=== PATIENT | female | born 1970 | race Caucasian/White ===

== ENCOUNTER → 2020-12-02 11:50 | Outpatient (CLI) | payer OTHER, SELFPAY ==
--- NOTE | 2020-12-02 11:52 | DI.RAD.S_ITS ---
PROCEDURE: XR LUMBAR SPINE 2-3V INDICATIONS: chronic lbp x years, worsening, bilat SI joint TTP TECHNIQUE: 3 views of the lumbar spine were acquired. COMPARISON: None. FINDINGS: Bones: No fracture. Multilevel degenerative endplate sclerosis and spurring. Diffuse facet arthropathy. Diffuse mild narrowing of the lumbar disc spaces. Minimal levocurvature. Soft tissues: Overlying bowel gas pattern is normal. No suspicious soft tissue calcifications. Scattered vascular calcifications seen in the aorta. IMPRESSION: Minimal levocurvature . Mild diffuse lumbar spondylosis and facet disease. Dictated by: Prakash Gomez M.D. on 12/02/2020 at 13:58 Approved by: Prakash Gomez M.D. on 12/02/2020 at 13:59
--- NOTE | 2020-12-02 11:52 | DI.RAD.S_ITS ---
PROCEDURE: XR SACROILIAC JOINT MIN 3V INDICATIONS: chronic lbp x years, worsening, bilat SI joint TTP TECHNIQUE: 3 views of the sacroiliac joints were acquired. COMPARISON: None. FINDINGS: Bones: No bony erosions or ankylosis. However, mild cortical irregularity at the inferior right SI joint. No suspicious bony lesions. No fractures. There is mild bilateral sacroiliac sclerosis and spurring. Soft tissues: Overlying bowel gas pattern is normal. No suspicious soft tissue densities. IMPRESSION: Bilateral mild sacroiliac sclerosis and spurring. No definite erosions, ankylosis, although mild cortical irregularity at the inferior right SI joint. If the patient's pain or other symptoms persist, consider further evaluation with MRI Dictated by: Prakash Gomez M.D. on 12/02/2020 at 14:00 Approved by: Prakash Gomez M.D. on 12/02/2020 at 14:01
[2020-12-02 12:16] LABS: Hemoglobin 14.4 g/dL (12.0-16.0); Mean Corpuscular HGB Conc 34.4 % (30-36); Mean Corpuscular Hemoglobin 31.4 PG (26-34); Mean Corpuscular Volume 91.3 fL (80-100); Platelet Count 178 X10^3/uL (150-400); Red Cell Distribution Width 12.9 % (11.6-14.8); White Blood Cell Count 6.1 X10^3/uL (4.5-11.0)
[2020-12-02 12:41] LABS: Alanine Aminotransferase 36 IU/L (<35); Albumin Globulin Ratio 1.6 (1.0-2.8); Alkaline Phosphatase 84 U/L (38-126); Aspartate Aminotransferase 40 IU/L (14-36); BUN Creatinine Ratio 21.5 (6-22); Bilirubin Total 0.7 mg/dL (0.2-1.3); Blood Urea Nitrogen 17 mg/dL (7-17); Calcium 10.1 mg/dL (8.4-10.2); Carbon Dioxide 25 mmol/L (22-32); Chloride 104 mmol/L (98-107); Cholesterol 294 mg/dL (140-199); Estimated Glomerular Filt Rate > 60.0 mL/min (>60); Globulin 3.1 g/dL (1.7-4.1); Glucose 109 mg/dL (70-100); HDL Cholesterol 53 mg/dL (40-60); HEMOLYSIS < 15 (0-50); Potassium 4.6 mmol/L (3.4-5.1); Sodium 138 mmol/L (137-145); Total Protein 8.1 g/dL (6.3-8.2); Triglycerides 427 mg/dL (35-150)
[2020-12-02 13:11] LABS: TSH w/ Reflex to FT4 1.36 uIU/mL (0.47-4.68)
[2020-12-02 13:20] LABS: Hemoglobin A1C% w Est Avg Glu 5.3 % (4.0-6.0)
[2020-12-02 13:56] LABS: Ferritin 206 ng/mL (11-264)
== END ==
PROVIDERS: PCP Registered Nurse Diabetes Educator; Referring Provider Registered Nurse Diabetes Educator; Visit Provider Registered Nurse Diabetes Educator
DX: G89.29 Other chronic pain (principal); M53.3 Sacrococcygeal disorders, not elsewhere classified; M54.5 Low back pain; E78.5 Hyperlipidemia, unspecified; R73.01 Impaired fasting glucose; R74.8 Abnormal levels of other serum enzymes
CPT/HCPCS: 36415; 72100; 72202; 80053; 80061; 82728; 83036; 84443; 85027

== ENCOUNTER → 2020-12-17 11:21 | Outpatient (CLI) | payer OTHER, SELFPAY ==
--- NOTE | 2020-12-17 11:23 | DI.MRI.S_ITS ---
PROCEDURE: MR PELVIS WO CON INDICATIONS: further eval bilateral SI joint findings, r/o sacroiliitis TECHNIQUE: Noncontrast axial and oblique coronal T1 spin echo and STIR through the sacroiliac joints. COMPARISON: [facility], CR, XR SACROILIAC JOINT MIN 3V, 12/02/2020, 12:15. FINDINGS: Image quality: Excellent. Bones: The sacroiliac joints appear preserved. No adjacent bone marrow edema to suggest active sacroiliitis. No bony erosions. No ankylosis. No suspicious marrow space occupying lesions. Soft tissues: No presacral masses. Visualized bowel loops appear normal in caliber and wall thickness. No pathologic free pelvic fluid. IMPRESSION: 1. No evidence of sacroiliitis. No bony ankylosis. Dictated by: Jose Ramon Burden M.D. on 12/17/2020 at 15:33 Approved by: Jose Ramon Burden M.D. on 12/17/2020 at 15:46
== END ==
PROVIDERS: PCP Registered Nurse Diabetes Educator; Referring Provider Registered Nurse Diabetes Educator; Visit Provider Registered Nurse Diabetes Educator
DX: R93.89 Abnormal findings on diagnostic imaging of other specified body structures (principal)
CPT/HCPCS: 72195

== ENCOUNTER → 2021-01-07 10:41 | Outpatient (CLI) | payer OTHER, SELFPAY ==
[2021-01-07] MEDS: COVID-19 VACC #1, MRNA(MOD) 100 MCG/0.5 ML VIAL IM (11:01)
== END ==
PROVIDERS: PCP Registered Nurse Diabetes Educator; Visit Provider Internal Medicine
DX: Z23 Encounter for immunization (principal)
CPT/HCPCS: 0011A; 91301

== ENCOUNTER → 2021-02-10 10:50 | Outpatient (CLI) | payer OTHER, SELFPAY ==
[2021-02-10] MEDS: COVID-19 VACC #2, MRNA(MOD) 100 MCG/0.5 ML VIAL IM (10:55)
== END ==
PROVIDERS: PCP Registered Nurse Diabetes Educator; Visit Provider Internal Medicine
DX: Z23 Encounter for immunization (principal)
CPT/HCPCS: 0012A; 91301

== ENCOUNTER → 2021-10-28 08:34 | Outpatient (CLI) | payer OTHER, SELFPAY ==
[2021-10-28 10:50] LABS: Alanine Aminotransferase 69 IU/L (<35); Albumin 5.1 g/dL (3.5-5.0); Albumin Globulin Ratio 1.6 (1.0-2.8); Alkaline Phosphatase 74 U/L (38-126); Aspartate Aminotransferase 54 IU/L (14-36); Bilirubin Total 0.7 mg/dL (0.2-1.3); Bilirubin Unconjugated 0.7 mg/dL (0.0-1.1); Globulin 3.2 g/dL (1.7-4.1); HEMOLYSIS < 15 (0-50); Total Protein 8.3 g/dL (6.3-8.2)
[2021-10-28 10:53] LABS: HEMOLYSIS < 15 (0-50); Iron 91 ug/dL (37-170)
[2021-10-28 11:06] LABS: Percent Iron Saturation 31 % (15-50); Total Iron Binding Capacity 291 ug/dL (265-497); Transferrin 255 mg/dL (206-381)
[2021-10-28 17:30] LABS: Hepatitis B Surface Antigen NEGATIVE s/c (NEGATIVE)
[2021-10-28 17:40] LABS: Hep C Virus Ab w/Reflex Quant NEGATIVE s/c (NEGATIVE)
[2021-10-28 19:41] LABS: Ferritin 289 ng/mL (11-264)
[2021-10-29 03:45] LABS: Hepatitis B Core AB w/Reflex Negative (Negative)
== END ==
PROVIDERS: PCP Registered Nurse Diabetes Educator; Referring Provider Registered Nurse Diabetes Educator; Visit Provider Registered Nurse Diabetes Educator
DX: R74.8 Abnormal levels of other serum enzymes (principal)
CPT/HCPCS: 36415; 80076; 82728; 83540; 83550; 86704; 86803; 87340

== ENCOUNTER → 2021-11-22 10:02 | Outpatient (CLI) | payer OTHER, SELFPAY ==
--- NOTE | 2021-11-22 | DI.MG.S_ITS ---
BILATERAL DIGITAL SCREENING MAMMOGRAM 3D/2D WITH CAD WITH AUGMENTATION: 11/22/2021 CLINICAL: Routine screening. Comparison is made to exams dated: 12/21/2018 mammogram, 01/03/2017 mammogram, and 08/19/2013 mammogram - outside location. There are scattered fibroglandular elements in both breasts. Current study was also evaluated with a Computer Aided Detection (CAD) system. Bilateral breast implants are stable. No significant masses, calcifications, or other findings are seen in either breast. There has been no significant interval change. IMPRESSION: NEGATIVE There is no mammographic evidence of malignancy. A 1 year screening mammogram is recommended. This exam was interpreted at Station ID: [id number]. NOTE: For mammograms, a report in lay terms will be sent to the patient. Approximately 15% of breast malignancies will not be visualized mammographically. In the management of a palpable breast mass, a negative mammogram must not discourage biopsy of a clinically suspicious lesion. Electronically Signed By: Shivma yanez/hemalatha:11/22/2021 11:34:20 letter sent: Normal Exam ACR BI-RADS Category 1: Negative 3341F
== END ==
PROVIDERS: PCP Registered Nurse Diabetes Educator; Referring Provider Registered Nurse Diabetes Educator; Visit Provider Registered Nurse Diabetes Educator
DX: Z12.31 Encounter for screening mammogram for malignant neoplasm of breast (principal)
CPT/HCPCS: 77063; 77067

== ENCOUNTER → 2021-12-01 12:17 | Outpatient (CLI) | payer OTHER, SELFPAY ==
--- NOTE | 2021-12-01 12:19 | DI.US.S_ITS ---
PROCEDURE: US ABDOMEN LIMITED INDICATIONS: ELEVATED LIVER ENZYMES TECHNIQUE: Real-time scanning was performed of the abdominal and retroperitoneal organs, with image documentation. COMPARISON: None. FINDINGS: Liver: The liver demonstrates diffusely increased echotexture without focal abnormalities consistent with chronic hepatocellular disease/hepatic steatosis. Within the medial aspect of the left hepatic lobe there is a 2.6 x 1.2 x 1.7 cm heterogeneously hypoechoic focus with minimal internal vascularity. Gallbladder: Gallbladder is normal in sonographic appearance without gallstones, gallbladder wall thickening, pericholecystic fluid, or abnormal sonographic Escobar's. Biliary ducts: Intrahepatic bile ducts are non-dilated. Extrahepatic bile duct caliber measures 5 mm. Normal is 6-7 mm or less in diameter, or 10 mm or less post-cholecystectomy. Pancreas: Visualized portions of the pancreas are sonographically normal. Miscellaneous: No free abdominal fluid. IMPRESSION: 1. The liver demonstrates diffusely increased echotexture without focal abnormalities consistent with chronic hepatocellular disease/hepatic steatosis. Consider correlation with LFTs. 2. There is a 2.6 cm x 1.2 cm x 1.7 cm heterogeneously hypoechoic focus with minimal internal vascularity identified in the medial aspect of the left hepatic lobe in close proximity to the gallbladder. This may represent a focus of fatty sparing versus a solid hepatic mass. Recommend further characterization with dedicated without/with contrast CT or MRI of the abdomen using hepatic mass protocol. 3. Normal sonographic evaluation of the gallbladder. Dictated by: Shivam Jones M.D. on 12/01/2021 at 15:22 Approved by: Shivam Jones M.D. on 12/01/2021 at 15:25
== END ==
PROVIDERS: PCP Registered Nurse Diabetes Educator; Referring Provider Registered Nurse Diabetes Educator; Visit Provider Registered Nurse Diabetes Educator
DX: R74.8 Abnormal levels of other serum enzymes (principal)
CPT/HCPCS: 76705

== ENCOUNTER → 2021-12-11 08:39 | Outpatient (CLI) | payer OTHER, SELFPAY ==
--- NOTE | 2021-12-11 08:41 | DI.MRI.S_ITS ---
PROCEDURE: MR ABDOMEN WO/W CON INDICATIONS: liver mass TECHNIQUE: Coronal HASTE, axial 2D FLASH in- and [id number]; axial breath-hold T2 FSE. Dynamic axial VIBE during the administration of contrast; post-contrast coronal VIBE or 2D FLASH with fat saturation from the hepatic dome to the iliac crests. Restricted diffusion weighted imaging and ADC. 20 cc ProHance IV contrast. COMPARISON: [facility], US, US ABDOMEN LIMITED, 12/01/2021, 12:42. FINDINGS: Image quality: Excellent. Lung bases: No basal pleural effusions. Heart size is normal. Breast implants. Solid organs: Liver is normal in size. Hepatic steatosis. Focal fatty sparing near the hilum and gallbladder. This is similar in size compared to the ultrasound finding. No mass or suspicious enhancement. Gallbladder is not distended. No gallstones identified. Biliary system is non dilated. Pancreas is normal in morphology. Spleen is normal in size and enhancement. No adrenal nodules. Both kidneys demonstrate normal size and enhancement, without hydronephrosis. Nodes and vessels: No retroperitoneal or mesenteric adenopathy by size criteria. Aorta and inferior vena cava are normal in size. Bowel and peritoneum: Unenhanced bowel loops are normal in caliber. A few colonic diverticuli. No free fluid. Bones and soft tissues: No ventral hernias. Bone marrow is normal in overall signal. IMPRESSION: 1. Hepatic steatosis. Focal fatty sparing near the gallbladder and hilum which corresponds to the ultrasound finding. 2. No mass or suspicious enhancement. Dictated by: Antwon Ramos M.D. on 12/13/2021 at 8:54 Approved by: Antwon Ramos M.D. on 12/13/2021 at 9:04
== END ==
PROVIDERS: PCP Registered Nurse Diabetes Educator; Referring Provider Registered Nurse Diabetes Educator; Visit Provider Registered Nurse Diabetes Educator
DX: R93.2 Abnormal findings on diagnostic imaging of liver and biliary tract (principal); K76.0 Fatty (change of) liver, not elsewhere classified
CPT/HCPCS: 74183; A9579

== ENCOUNTER → 2022-09-28 14:50 | Outpatient (CLI) | payer OTHER, SELFPAY ==
[2022-09-28 17:31] LABS: Add Manual Diff / Slide Review NO; Basophils Absolute Auto 0 /uL (0-100); Basophils Percent Auto 0.5 % (0-2); Eosinophils Absolute Auto 100 /uL (0-450); Eosinophils Percent Auto 1.2 % (2-4); Hematocrit 40.6 % (36-46); Lymphocytes Absolute Auto 2700 /uL (1100-4500); Mean Corpuscular HGB Conc 34.6 % (30-36); Mean Corpuscular Hemoglobin 31.5 PG (26-34); Mean Corpuscular Volume 91.3 fL (80-100); Monocytes Absolute Auto 500 /uL (0-900); Monocytes Percent Auto 6.9 % (3-14); Neutrophils Absolute Auto 4100 /uL (1500-7000); Neutrophils Percent Auto 55.4 % (50-75); Platelet Count 168 X10^3/uL (150-400); Red Blood Cell Count 4.44 X10^6/uL (4.0-5.2); Red Cell Distribution Width 12.6 % (11.6-14.8); White Blood Cell Count 7.4 X10^3/uL (4.5-11.0)
[2022-09-28 17:36] LABS: Hemoglobin A1C% w Est Avg Glu 5.4 % (4.0-6.0)
[2022-09-28 18:07] LABS: Alanine Aminotransferase 71 IU/L (<35); Albumin 4.7 g/dL (3.5-5.0); Albumin Globulin Ratio 1.3 (1.0-2.8); Alkaline Phosphatase 79 U/L (38-126); Aspartate Aminotransferase 52 IU/L (14-36); BUN Creatinine Ratio 22.1 (6-22); Bilirubin Total 0.5 mg/dL (0.2-1.3); Blood Urea Nitrogen 21 mg/dL (7-17); Calcium 9.4 mg/dL (8.4-10.2); Carbon Dioxide 26 mmol/L (22-32); Chloride 103 mmol/L (98-107); Estimated Glomerular Filt Rate > 60 mL/min (>60); Globulin 3.6 g/dL (1.7-4.1); Glucose 102 mg/dL (70-100); HEMOLYSIS < 15 (0-50); Magnesium 2.1 mg/dL (1.6-2.3); Potassium 4.1 mmol/L (3.4-5.1); Sodium 141 mmol/L (137-145); Total Protein 8.3 g/dL (6.3-8.2)
[2022-09-28 18:40] LABS: Ferritin 277 ng/mL (11-264)
[2022-09-30 14:27] LABS: Appearance Urine UA CLEAR; Bilirubin Urine UA NEGATIVE (NEGATIVE); Color Urine UA YELLOW; Glucose Urine UA NEGATIVE (Negative); Ketones Urine UA NEGATIVE (NEGATIVE); Leukocyte Esterase Urine UA NEGATIVE (NEGATIVE); Nitrite Urine UA NEGATIVE (Negative); Occult Blood Urine UA NEGATIVE (Negative); Protein Urine UA NEGATIVE (Negative); Specific Gravity Urine UA 1.015 (1.000-1.035); Urobilinogen Urine UA 0.2 E.U./dL (0.2)
[2022-09-30 14:46] LABS: Bacteria Urine Occasional (0-1); Culture Indicated Urine Cult Not Indicated; RBC Urine None Seen (0-5/HPF); WBC Urine None Seen (0-5/HPF)
== END ==
PROVIDERS: PCP Registered Nurse Diabetes Educator; Referring Provider Registered Nurse Diabetes Educator; Visit Provider Registered Nurse Diabetes Educator
DX: E78.5 Hyperlipidemia, unspecified (principal); I10 Essential (primary) hypertension; R73.01 Impaired fasting glucose; R74.8 Abnormal levels of other serum enzymes
CPT/HCPCS: 36415; 80053; 81001; 82728; 83036; 83735; 84443; 85025

== ENCOUNTER → 2022-10-10 13:48 | Outpatient (CLI) | payer OTHER, SELFPAY ==
--- NOTE | 2022-10-18 07:38 | P.HOLT.S_ITS ---
[facility] Department Report Referral & Results Date Patient Seen: 10/10/22 Requesting provider: Aakash Castillo Indication: Palpitations Duration of monitoring (days): 3 Diary information: There were 3 patient triggered events and 2 patient diary entries. All of these patient events were associated with sinus rhythm only Data: Minimum heart rate identified was 57 beats per minute at 06:17 on 10/13/2022 Maximum heart rate was sinus rhythm at a rate of 133 beats per minute at 10:04 on 10/12/2022 Less than 1% of identified beats were ventricular or supraventricular ectopic in origin, which would classify them as rare. No pauses of 3 seconds or longer or episodes of atrial fibrillation or SVT identified on this study Impression: 3 day telemetry monitor that does not demonstrate any etiology for patient reported sense of palpitations.
== END ==
PROVIDERS: PCP Registered Nurse Diabetes Educator; Referring Provider Registered Nurse Diabetes Educator; Visit Provider Registered Nurse Diabetes Educator
DX: R00.2 Palpitations (principal)
CPT/HCPCS: 93242; 93244

== ENCOUNTER → 2022-10-17 14:58 | Outpatient (CLI) | payer OTHER, SELFPAY ==
[2022-10-17 16:19] LABS: Free T3, Triiodothyronine Free 4.02 pg/mL (2.77-5.27); Free T4, Direct Thyroxine 0.82 ng/dL (0.78-2.19)
== END ==
PROVIDERS: PCP Registered Nurse Diabetes Educator; Referring Provider Registered Nurse Diabetes Educator; Visit Provider Registered Nurse Diabetes Educator
DX: I10 Essential (primary) hypertension (principal); R00.2 Palpitations
CPT/HCPCS: 36415; 84439; 84481

== ENCOUNTER → 2022-10-26 09:08 | Outpatient (CLI) | payer OTHER, SELFPAY ==
--- NOTE | 2022-10-26 09:09 | DI.ECHO.S_ITS ---
[place] [facility] +---------+ : : [address] [place] : : : : [id number] : : : : Phone: [phone]+ Echocardiogram Report + + :Name: KAIDEN FISHMAN Study Date: 10/26/2022 Height: 62.5 in: :[facility] ReadingLocation: Weight: 148 lb : : Gender: Female BSA: 1.7 m2 : :: 1970 Age: 52 yrs BP: 140/82 mmHg: :Reason For Study: LVH ON EKG : :Ordering Physician: GRABIEL, : :PHAM Performed By: Jacklyn Ga : :Referring: PHAM SPAIN : + + Interpretation Summary The left ventricle is normal in size. There is borderline proximal septal thickening noted. Left ventricular systolic function is normal. The ejection fraction is estimated to be 60-65%. The right ventricle is normal in size and function. No significant valvular pathology seen. The IVC is of normal diameter and collapses greater than 50% with a sniff. This suggests a low right atrial pressure of 3 mm Hg. Procedure: A two-dimensional transthoracic echocardiogram with color flow and Doppler was performed. The study quality was technically adequate. There is no prior echocardiogram noted for this patient. The patient was in sinus rhythm with heart rates between 71-79 bpm during the exam. Left Ventricle: There is borderline proximal septal thickening noted. There is no echo evidence for significant left ventricular outflow tract obstruction. The left ventricle is normal in size. There is no thrombus. The ejection fraction is estimated to be 60-65%. Left ventricular systolic function is normal. There are no focal wall motion abnormalities. MV E/A: 1.1 Med Peak E' Jeramie: 6.9 cm/sec E/E' med: 12.3. Right Ventricle: The right ventricle is normal in size and function. Atria: The left atrial size is normal. Right atrial size is normal. There is no Doppler evidence for an interatrial shunt. Mitral Valve: The mitral valve is normal in structure and function. There is trace mitral regurgitation. Aortic Valve: The aortic valve is trileaflet. The aortic valve opens well. There is no aortic valve stenosis. No aortic regurgitation is present. Tricuspid Valve: The tricuspid valve is normal in structure and function. There is trace tricuspid regurgitation. Pulmonary artery pressures cannot be estimated because of the lack of a measurable TR jet velocity. Pulmonic Valve: The pulmonic valve is not well visualized. There is no pulmonic valvular regurgitation. Great Vessels: The aortic root is normal size. The dimensions of the ascending aorta are normal. The IVC is of normal diameter and collapses greater than 50% with a sniff. This suggests a low right atrial pressure of 3 mm Hg. Pericardium/ Pleura There is no pericardial effusion. There is no pleural effusion. MMode/2D Measurements & Calculations LVIDd: 4.6 cm LVOT diam: 2.0 cm LVIDs: 3.1 cm Ao root diam: 3.1 cm FS: 32.1 % asc Aorta Diam: 3.5 cm IVSd: 0.85 cm Ao Arch Diam (Prox Trans): 3.2 cm LVPWd: 0.92 cm LV mason. diameter/BSA (cm/m^2): 2.7 LV sys. diameter/BSA (cm/m^2): 1.8 LA A2 area: 17.0 cm2 RA long axis: 4.6 cm LA A4 area: 13.9 cm2 RA area: 12.4 cm2 LA length (vol): 4.5 cm RA vol: 28.3 ml LA vol: 45.0 ml RA : 16.7 ml/m2 LA vol index: 26.6 ml/m2 IVC diam: 1.6 cm RVD1 (basal): 3.2 cm RVD2 (mid): 2.4 cm TAPSE: 1.8 cm Doppler Measurements & Calculations Ao V2 max: 133.7 cm/sec LVOT Max Jeramie: 103.7 cm/sec Ao V2 mean: 95.9 cm/sec LV V1 max P.3 mmHg Ao max P.2 mmHg LV V1 VTI: 19.4 cm Ao mean P.1 mmHg TEMITOPE(I,D): 2.2 cm2 Ao V2 VTI: 28.8 cm TEMITOPE(V,D): 2.5 cm2 sev ratio: 0.67 TEMITOPE indexed to BSA (cm^2/m^2): 1.3 MV E max jeramie: 85.3 cm/sec PA V2 max: 70.8 cm/sec MV A max jeramie: 78.5 cm/sec PA V2 mean: 51.4 cm/sec MV E/A: 1.1 PA mean P.2 mmHg Med Peak E' Jeramie: 6.9 cm/sec PA pr(Accel): 27.6 mmHg E/E' med: 12.3 Lat Peak E' Jeramie: 8.5 cm/sec E/E' lat: 10.1 E/e' average: 11.2 MV dec time: 0.19 sec SV(LVOT): 62.3 ml Reading Physician:02:12 PM
== END ==
PROVIDERS: PCP Registered Nurse Diabetes Educator; Referring Provider Registered Nurse Diabetes Educator; Visit Provider Registered Nurse Diabetes Educator
DX: R94.31 Abnormal electrocardiogram [ECG] [EKG] (principal); I10 Essential (primary) hypertension
CPT/HCPCS: 93306

== ENCOUNTER → 2023-01-30 12:38 | Outpatient (CLI) | payer OTHER, SELFPAY ==
--- NOTE | 2023-01-30 12:39 | DI.MG.S_ITS ---
BILATERAL DIGITAL SCREENING MAMMOGRAM 3D/2D WITH CAD WITH AUGMENTATION: 01/30/2023 CLINICAL: Routine screening. Comparison is made to exams dated: 11/22/2021 mammogram - [facility], 12/21/2018 mammogram, and 01/03/2017 mammogram - outside location. Both breasts are heterogeneously dense, which may obscure small masses (category c / 51-75% glandular tissue). Current study was also evaluated with a Computer Aided Detection (CAD) system. Bilateral breast implants are stable. No significant masses, calcifications, or other findings are seen in either breast. There has been no significant interval change. IMPRESSION: NEGATIVE There is no mammographic evidence of malignancy. A 1 year screening mammogram is recommended. Based on the Tyrer Cuzick model (a risk assessment model) the patient's lifetime risk is 10.4% and her 10 year risk is 3.0%. According to the ACR, ACS, and NCCN guidelines, an annual breast MRI exam along with mammogram is recommended if the patient's lifetime risk is 20% or greater. This exam was interpreted at Station ID: [id number]. NOTE: For mammograms, a report in lay terms will be sent to the patient. Approximately 15% of breast malignancies will not be visualized mammographically. In the management of a palpable breast mass, a negative mammogram must not discourage biopsy of a clinically suspicious lesion. Electronically Signed By: David balbuena/hemalatha:01/30/2023 13:50:58 letter sent: Normal Exam ACR BI-RADS Category 1: Negative 3341F
== END ==
PROVIDERS: PCP Registered Nurse Diabetes Educator; Referring Provider Registered Nurse Diabetes Educator; Visit Provider Registered Nurse Diabetes Educator
DX: Z12.31 Encounter for screening mammogram for malignant neoplasm of breast (principal)
CPT/HCPCS: 77063; 77067

== ENCOUNTER → 2023-03-27 10:00 | Outpatient (CLI) | payer OTHER, SELFPAY ==
[2023-03-27 11:37] LABS: Alanine Aminotransferase 39 IU/L (<35); Albumin 4.4 g/dL (3.5-5.0); Albumin Globulin Ratio 1.6 (1.0-2.8); Alkaline Phosphatase 64 U/L (38-126); Aspartate Aminotransferase 31 IU/L (14-36); BUN Creatinine Ratio 16.1 (6-22); Bilirubin Total 0.8 mg/dL (0.2-1.3); Blood Urea Nitrogen 15 mg/dL (7-17); Calcium 9.3 mg/dL (8.4-10.2); Carbon Dioxide 26 mmol/L (22-32); Chloride 104 mmol/L (98-107); Cholesterol 258 mg/dL (140-199); Estimated Glomerular Filt Rate > 60 mL/min (>60); Globulin 2.7 g/dL (1.7-4.1); Glucose 104 mg/dL (70-100); HDL Cholesterol 42 mg/dL (40-60); HEMOLYSIS < 15 (0-50); LDL Cholesterol Calculated 151 mg/dL (<100); Potassium 4.6 mmol/L (3.4-5.1); Sodium 139 mmol/L (137-145); Total Protein 7.1 g/dL (6.3-8.2); Triglycerides 326 mg/dL (35-150)
[2023-03-28 07:09] LABS: Labcorp Hemoglobin (Hb) A1c 5.3 % (4.8-5.6)
== END ==
PROVIDERS: PCP Registered Nurse Diabetes Educator; Referring Provider Registered Nurse Diabetes Educator; Visit Provider Registered Nurse Diabetes Educator
DX: R74.8 Abnormal levels of other serum enzymes (principal); R73.01 Impaired fasting glucose; E78.5 Hyperlipidemia, unspecified
CPT/HCPCS: 36415; 80053; 80061; 83036

== ENCOUNTER → 2023-08-24 11:55 | Outpatient (CLI) | payer OTHER, SELFPAY ==
[2023-08-24 14:13] LABS: Alanine Aminotransferase 52 IU/L (<35); Albumin 4.6 g/dL (3.5-5.0); Albumin Globulin Ratio 1.5 (1.0-2.8); Alkaline Phosphatase 66 U/L (38-126); Aspartate Aminotransferase 42 IU/L (14-36); Bilirubin Total 0.8 mg/dL (0.2-1.3); Bilirubin Unconjugated 0.5 mg/dL (0.0-1.1); Cholesterol 263 mg/dL (140-199); Globulin 3.1 g/dL (1.7-4.1); Glucose 97 mg/dL (70-100); HDL Cholesterol 39 mg/dL (40-60); HEMOLYSIS < 15 (0-50); Total Protein 7.7 g/dL (6.3-8.2); Triglycerides 453 mg/dL (35-150)
[2023-08-24 14:40] LABS: Ferritin 318 ng/mL (11-264)
== END ==
PROVIDERS: PCP Registered Nurse Diabetes Educator; Referring Provider Registered Nurse Diabetes Educator; Visit Provider Registered Nurse Diabetes Educator
DX: R74.8 Abnormal levels of other serum enzymes (principal); R73.01 Impaired fasting glucose; E78.5 Hyperlipidemia, unspecified; K76.0 Fatty (change of) liver, not elsewhere classified
CPT/HCPCS: 36415; 80061; 80076; 82728; 82947

== ENCOUNTER → 2024-04-08 10:48 | Outpatient (CLI) | payer OTHER, SELFPAY ==
--- NOTE | 2024-04-08 10:49 | DI.MG.S_ITS ---
BILATERAL DIGITAL SCREENING MAMMOGRAM 3D/2D WITH CAD WITH AUGMENTATION: 04/08/2024 CLINICAL: Routine screening. Comparison is made to exams dated: 01/30/2023 mammogram, 11/22/2021 mammogram - [facility], and 12/21/2018 mammogram - outside location. Both breasts are heterogeneously dense, which may obscure small masses (category c / 51-75% glandular tissue). Current study was also evaluated with a Computer Aided Detection (CAD) system. Bilateral breast implants are stable. No significant masses, calcifications, or other findings are seen in either breast. There has been no significant interval change. IMPRESSION: BENIGN There is no mammographic evidence of malignancy. A 1 year screening mammogram is recommended. Based on the Tyrer Cuzick model (a risk assessment model) the patient's lifetime risk is 10.2% and her 10 year risk is 3.3%. According to the ACR, ACS, and NCCN guidelines, an annual breast MRI exam along with mammogram is recommended if the patient's lifetime risk is 20% or greater. This exam was interpreted at Station ID: [id number]. NOTE: For mammograms, a report in lay terms will be sent to the patient. Approximately 15% of breast malignancies will not be visualized mammographically. In the management of a palpable breast mass, a negative mammogram must not discourage biopsy of a clinically suspicious lesion. Electronically Signed By: Ivette Charles M.D., Ph.D. darlene/hemalatha:04/08/2024 16:28:51 letter sent: Normal Exam ACR BI-RADS Category 2: Benign Finding(s) 3342F
== END ==
PROVIDERS: PCP Registered Nurse Diabetes Educator; Referring Provider Registered Nurse Diabetes Educator; Visit Provider Registered Nurse Diabetes Educator
DX: Z12.31 Encounter for screening mammogram for malignant neoplasm of breast (principal); R92.333 Mammographic heterogeneous density, bilateral breasts
CPT/HCPCS: 77063; 77067

== ENCOUNTER → 2024-07-10 10:21 | Outpatient (CLI) | payer OTHER, SELFPAY ==
[2024-07-10 10:59] LABS: Hematocrit 39.8 % (36-46); Hemoglobin 13.6 g/dL (12.0-16.0); Mean Corpuscular HGB Conc 34.1 % (30-36); Mean Corpuscular Volume 87.7 fL (80-100); Platelet Count 210 X10^3/uL (150-400); Red Blood Cell Count 4.54 X10^6/uL (4.0-5.2); Red Cell Distribution Width 12.7 % (11.6-14.8)
[2024-07-10 11:07] LABS: Hemoglobin A1C% w Est Avg Glu 5.5 % (4.0-6.0)
[2024-07-10 11:43] LABS: Alanine Aminotransferase 30 IU/L (<35); Albumin 4.2 g/dL (3.5-5.0); Albumin Globulin Ratio 1.5 (1.0-2.8); Alkaline Phosphatase 60 U/L (38-126); Aspartate Aminotransferase 30 IU/L (14-36); BUN Creatinine Ratio 19.4 (6-22); Bilirubin Total 0.5 mg/dL (0.2-1.3); Blood Urea Nitrogen 14 mg/dL (7-17); Calcium 9.6 mg/dL (8.4-10.2); Carbon Dioxide 24 mmol/L (22-32); Chloride 106 mmol/L (98-107); Cholesterol 299 mg/dL (140-199); Estimated Glomerular Filt Rate > 60 mL/min (>60); Globulin 2.8 g/dL (1.7-4.1); Glucose 104 mg/dL (70-100); HDL Cholesterol 41 mg/dL (40-60); HEMOLYSIS < 15 (0-50); LDL Cholesterol Calculated 208 mg/dL (<100); Potassium 4.5 mmol/L (3.4-5.1); Sodium 135 mmol/L (137-145); Triglycerides 250 mg/dL (35-150)
[2024-07-10 12:10] LABS: TSH w/ Reflex to FT4 0.77 uIU/mL (0.47-4.68)
== END ==
PROVIDERS: PCP Registered Nurse Diabetes Educator; Referring Provider Registered Nurse Diabetes Educator; Visit Provider Registered Nurse Diabetes Educator
DX: Z00.00 Encounter for general adult medical examination without abnormal findings (principal); R73.01 Impaired fasting glucose; R74.8 Abnormal levels of other serum enzymes; E78.5 Hyperlipidemia, unspecified; Z51.81 Encounter for therapeutic drug level monitoring; K76.0 Fatty (change of) liver, not elsewhere classified
CPT/HCPCS: 36415; 80053; 80061; 83036; 84443; 85027

== ENCOUNTER → 2024-10-31 14:13 | Outpatient (CLI) | payer OTHER, SELFPAY ==
--- NOTE | 2024-10-31 14:14 | DI.RAD.S_ITS ---
PROCEDURE: XR HAND LT MIN 3V INDICATIONS: eval pain/swelling bilateral DIP joints TECHNIQUE: 3 views of the hand(s) acquired. COMPARISON: [facility], CR, XR HAND RT MIN 3V, 10/31/2024, 14:30. FINDINGS: Bones: There are no osseous abnormalities Joints: Mild degeneration of the STT 1st CMC and all interphalangeal joints appreciated. Soft tissues: No soft tissue abnormality. IMPRESSION: Mild degeneration Dictated by: Kevin Torres M.D. on 11/01/2024 at 10:20 Approved by: Kevin Torres M.D. on 11/01/2024 at 10:21
--- NOTE | 2024-10-31 14:14 | DI.RAD.S_ITS ---
PROCEDURE: XR HAND RT MIN 3V INDICATIONS: eval pain/swelling bilateral DIP joints TECHNIQUE: 3 views of the hand(s) acquired. COMPARISON: None. FINDINGS: Bones: There are no osseous abnormalities Joints: Moderate degeneration in the 2nd and 3rd DIP with mild degeneration in the remaining interphalangeal STT and 1st CMC joints. Soft tissues: No soft tissue abnormality. IMPRESSION: Degeneration Dictated by: Kevin Torres M.D. on 11/01/2024 at 10:19 Approved by: Kevin Torres M.D. on 11/01/2024 at 10:20
[2024-10-31 14:59] LABS: C-Reactive Protein Quant < 0.5 mg/dL (<1.0); Cholesterol 263 mg/dL (140-199); HDL Cholesterol 33 mg/dL (40-60); Triglycerides 404 mg/dL (35-150)
[2024-10-31 15:01] LABS: Rheumatoid Factor < 8.6 IU/mL (<12.0)
[2024-10-31 15:20] LABS: Erythrocyte Sedimentation Rate 28 MM/HR (0-20)
== END ==
LOC: LAB 14:14
PROVIDERS: PCP Registered Nurse Diabetes Educator; Referring Provider Registered Nurse Diabetes Educator; Visit Provider Registered Nurse Diabetes Educator
DX: M79.641 Pain in right hand (principal); M79.642 Pain in left hand; M79.89 Other specified soft tissue disorders; E78.5 Hyperlipidemia, unspecified
CPT/HCPCS: 36415; 73130; 80061; 82784; 83516; 85651; 86038; 86140; 86200; 86430

== ENCOUNTER → 2025-01-24 10:11 | Outpatient (CLI) | payer OTHER, SELFPAY ==
[2025-01-24 12:16] LABS: Alanine Aminotransferase 41 IU/L (<35); Albumin 4.7 g/dL (3.5-5.0); Albumin Globulin Ratio 1.8 (1.0-2.8); Alkaline Phosphatase 58 U/L (38-126); Aspartate Aminotransferase 37 IU/L (14-36); Bilirubin Total 0.5 mg/dL (0.2-1.3); Bilirubin Unconjugated 0.1 mg/dL (0.0-1.1); Cholesterol 220 mg/dL (140-199); Globulin 2.6 g/dL (1.7-4.1); HDL Cholesterol 44 mg/dL (40-60); HEMOLYSIS < 15 (0-50); LDL Cholesterol Calculated 132 mg/dL (<100); Total Protein 7.3 g/dL (6.3-8.2); Triglycerides 221 mg/dL (35-150)
== END ==
LOC: LAB 10:12
PROVIDERS: PCP Registered Nurse Diabetes Educator; Referring Provider Registered Nurse Diabetes Educator; Visit Provider Registered Nurse Diabetes Educator
DX: R74.8 Abnormal levels of other serum enzymes (principal); E78.5 Hyperlipidemia, unspecified; K76.0 Fatty (change of) liver, not elsewhere classified
CPT/HCPCS: 36415; 80061; 80076

== ENCOUNTER → 2025-01-30 10:36 | Outpatient (CLI) | payer OTHER, SELFPAY ==
--- NOTE | 2025-01-30 10:40 | DI.RAD.S_ITS ---
PROCEDURE: XR LUMBAR SPINE MIN 4V INDICATIONS: LBP with radiculopathy TECHNIQUE: 5 views of the lumbar spine were acquired, including bilateral oblique views. COMPARISON: [facility], , XR LUMBAR SPINE 2-3V, 12/02/2020, 12:15. FINDINGS: Bones: 5 nonrib-bearing vertebrae are present. There is normal bony alignment. No vertebral body compression fractures. No suspicious bony lesions. Note is made of minimal disc height reduction at the L2-L3 level indicating slight degenerative disc disease at that site. At L4-5 and L5-S1 there is mild facet degeneration, without subluxation. Spinal and foraminal stenosis may be present to a mild degree at L5-S1. Soft tissues: Overlying bowel gas pattern is normal. No suspicious soft tissue calcifications. Oblique images: No pars defects. IMPRESSION: No acute disease, no prior or recent trauma is found. Only a small degree of degenerative disc disease is present at L2-L3 and mild facet osteoarthritis appears symmetric at L4-5 and especially L5-S1. MR scanning could be utilized to more accurately assess for presence of disc bulge or herniation and nerve root impingement. Dictated by: Madan Fisher M.D. on 01/30/2025 at 12:31 Approved by: Madan Fisher M.D. on 01/30/2025 at 12:33
== END ==
PROVIDERS: PCP Registered Nurse Diabetes Educator; Referring Provider Registered Nurse Diabetes Educator; Visit Provider Registered Nurse Diabetes Educator
DX: M51.16 Intervertebral disc disorders with radiculopathy, lumbar region (principal); M47.26 Other spondylosis with radiculopathy, lumbar region; M47.27 Other spondylosis with radiculopathy, lumbosacral region; G89.29 Other chronic pain
CPT/HCPCS: 72110

== ENCOUNTER → 2025-06-03 | Outpatient (CLI) | payer OTHER, SELFPAY ==
--- NOTE | 2025-06-03 16:23 | DI.MG.S_ITS ---
MM screening mammo implant BI: 06/03/2025. BI-RADS: 2 CLINICAL: 55-year old female for bilateral screening mammogram. Tyrer-Cuzick lifetime risk of 7.1%. No personal or first-degree family history of breast cancer. The patient has bilateral implants. PRIOR EXAMS 04/08/2024, 01/30/2023, 11/22/2021. MAMMOGRAPHY TECHNIQUE: 2D and 3D (tomosynthesis) digital mammographic views obtained, with additional images as needed for full coverage. Current study was also evaluated with a Computer Aided Detection (CAD) system. DENSITY C. The breasts are heterogeneously dense, which may obscure small masses. IMPLANTS Breast implants present. MAMMOGRAPHY FINDINGS Bilateral: There are no suspicious masses, calcifications, or other findings in the breast. IMPRESSION: * No evidence of malignancy with benign findings. RECOMMENDATIONS Bilateral * Annual screening mammography. OVERALL ASSESSMENT CATEGORY BI-RADS-2: Benign. The [employer] recommends annual screening mammography beginning at age 40 for women with average risk of breast cancer. ELECTRONICALLY SIGNED: Ivette Charles M.D. on 06/07/2025 at 03:18:04 PM PT Interpreting Station ID: [id number]
== END ==
LOC: MAMMO 15:29
PROVIDERS: PCP Registered Nurse Diabetes Educator; Referring Provider Registered Nurse Diabetes Educator; Visit Provider Registered Nurse Diabetes Educator
DX: Z12.31 Encounter for screening mammogram for malignant neoplasm of breast (principal); Z98.82 Breast implant status; R92.333 Mammographic heterogeneous density, bilateral breasts
CPT/HCPCS: 77063; 77067